=== PATIENT | female | born 1950 | race Caucasian/White ===

== ENCOUNTER → 2025-04-04 12:50 | Outpatient (REF) | payer MEDICARE, OTHER, SELFPAY | LOC: HWRAD 12:50 | PROVIDERS: ATTENDING PHYSICIAN Urology; FAMILY PHYSICIAN Family Medicine | DX: N30.10 Interstitial cystitis (chronic) without hematuria (principal); N94.819 Vulvodynia, unspecified; N39.0 Urinary tract infection, site not specified | CPT/HCPCS: 76770 ==